=== PATIENT | female | born 2000 | race Two or more races ===

== ENCOUNTER 2024-10-14 20:49 | Emergency (ER) | payer OTHER, SELFPAY ==
[2024-10-14 20:51] VITALS: BP 129/75; PULSE 104; RESP 18; TEMP 35.8; O2SAT 97; BMI 31.6
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
--- NOTE | 2024-10-14 21:42 | CT_ITS ---
STUDY: CT FACIAL BONES WITHOUT CONTRAST REASON FOR EXAM: Female, 23 years old. left sided TMJ pain r/o fracture RADIATION DOSAGE (If Supplied By Facility): CTDIvol = ( 29.38 ) mGy, DLP = ( 569.49 ) mGycm TECHNIQUE: The patient was scanned in a multi detector CT scanner. Sagittal and coronal images were reconstructed. Individualized dose optimization techniques were used for this CT. COMPARISON: None. FINDINGS: Normal soft tissue structures. Normal orbital durand and orbital contents. Normal nasal bones and anterior nasal spine. Normal zygomatic arches. Normal mandible. There are left dental cavities. Normal facial bones. There is no demonstrated fracture. Normal visualized paranasal sinuses. CT/Sinus/Facial Bone IMPRESSION: Normal unenhanced CT of the facial bones. Electronically Signed: Santana Dahl MD at 22:15 EST ,
[2024-10-14 22:32] VITALS: BP 129/75; PULSE 104; RESP 18; TEMP 35.8; O2SAT 97
== END 2024-10-14 22:37 | disposition home or self-care (01) ==
LOC: ED 21:44
PROVIDERS: Emergency Provider Emergency Medicine; Visit Provider Emergency Medicine
DX: M26.622 Arthralgia of left temporomandibular joint (principal); F17.290 Nicotine dependence, other tobacco product, uncomplicated; W50.1XXA Accidental kick by another person, initial encounter; Y93.89 Activity, other specified
CPT/HCPCS: 70486; 99282

== ENCOUNTER → 2025-05-15 | Outpatient (CLI) | payer MEDICAID, SELFPAY | END | disposition home or self-care (01) | LOC: LABSPEC 15:12 | PROVIDERS: Referring Provider Otolaryngology; Visit Provider Otolaryngology | DX: J03.90 Acute tonsillitis, unspecified (principal) | CPT/HCPCS: 87070; 87077; 87186 ==